=== PATIENT | male | born 1990 | race African-American/Black ===

== ENCOUNTER 2018-03-20 10:42 | Emergency (ER) | payer MEDICAID, OTHER ==
[~2018-03-20] VITALS: Ht 180.3 cm; Wt 82.0 kg
[2018-03-20 10:45] VITALS: BP 140/80
[2018-03-20] MEDS ORDERED: TETANUS, DIPHTHERIA, PERTUSSIS VAC/PF 0.5ML (>7YR OLD) IM ONE (11:15)
[2018-03-20] MEDS ORDERED: LIDOCAINE HCL/PF 1% 2ML VIAL INFIL ONE (11:15)
[2018-03-20] MEDS ORDERED: BACITRACIN ZINC OINT UDPKT TOP ONE (11:15)
[2018-03-20] MEDS ORDERED: LIDOCAINE HCL/PF 1% 10 MG/ML 5ML VIAL IJ SCH (11:28)
== END 2018-03-20 12:56 | disposition home or self-care (01) ==
LOC: ER 11:34
DX: S61.411A Laceration without foreign body of right hand, initial encounter (principal); F12.10 Cannabis abuse, uncomplicated; X99.1XXA Assault by knife, initial encounter; Y93.89 Activity, other specified; Y92.89 Other specified places as the place of occurrence of the external cause; Y99.8 Other external cause status
CPT/HCPCS: 12002; 90471; 90715; 99283; J3490